=== PATIENT | female | born 1955 | race Caucasian/White ===

== ENCOUNTER 2021-04-13 09:39 | Emergency (ER) | payer OTHER, MEDICARE, SELFPAY ==
[2021-04-13] VITALS (16 sets, daily range): BP systolic 127–157; BP diastolic 41–72; PULSE 62–98; RESP 14–20; TEMP 36.6–36.7; O2SAT 96–100
--- NOTE | 2021-04-13 09:53 | DI.RAD.S_ITS ---
PROCEDURE: XR WRIST LT MIN 3V INDICATIONS: fall, + pain w/ deformity. TECHNIQUE: 3 views of the wrist were acquired. COMPARISON: None. FINDINGS: Bones: There is a mildly displaced, impacted, intra-articular distal radius fracture. There is radiocarpal dislocation, with the carpus dislocated dorsally in relation to the distal radius. Degenerative changes are seen throughout, which are most prominent involving the 1st carpometacarpal joint. Milder degenerative changes are seen elsewhere. Soft tissues: No suspicious soft tissue calcifications. IMPRESSION: Impacted, intra-articular distal radius fracture. Radiocarpal dislocation. Orthopedic surgery consultation recommended. Dictated by: Lenard Mon M.D. on 04/13/2021 at 9:38 Approved by: Lenard Mon M.D. on 04/13/2021 at 9:39
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
--- NOTE | 2021-04-13 11:54 | DI.RAD.S_ITS ---
PROCEDURE: XR WRIST LT 2V INDICATIONS: post reduction TECHNIQUE: 2 views of the wrist were acquired. COMPARISON: [facility], CR, XR WRIST LT MIN 3V, 04/13/2021, 9:55. FINDINGS: Bones: On this post reduction study, there is no longer seen a radiocarpal dislocation. There remains a mildly to moderately displaced distal radius fracture, with impacted fracture fragments. There is intra-articular involvement. No accompanying fracture of the distal ulna can be seen. The overlying casting material limits evaluation of fine detail. Soft tissues: No suspicious soft tissue calcifications. IMPRESSION: Improved alignment, with the radiocarpal dislocation no longer seen. Comminuted, intra-articular distal radius fracture. Dictated by: Lenard Mon M.D. on 04/13/2021 at 11:22 Approved by: Lenard Mon M.D. on 04/13/2021 at 11:23
[2021-04-13] MEDS: propofoL 200 MG/20 ML VIAL 60 MG IV (11:56)
[2021-04-13] MEDS: ONDANSETRON 4 MG ODT SL (11:57)
== END 2021-04-13 13:00 | disposition home or self-care (01) ==
PROVIDERS: Emergency Provider Emergency Medicine
DX: S52.502A Unspecified fracture of the lower end of left radius, initial encounter for closed fracture (principal); W01.0XXA Fall on same level from slipping, tripping and stumbling without subsequent striking against object, initial encounter
CPT/HCPCS: 25605; 73100; 73110; 99152; 99285; J2704